=== PATIENT | female | born 1980 | race Caucasian/White ===

== ENCOUNTER 2016-11-15 18:44 | Emergency (ER) | payer OTHER ==
[~2016-11-15] VITALS: Ht 170.2 cm; Wt 110.0 kg
[~2016-11-15 18:44] MED LIST: CYCL-36 PO; DICL75 PO; IBUP-238 PO; Z.0.NO CURRENT MEDS
[2016-11-15 18:45] VITALS: BP 135/82; PULSE 78; RESP 20; TEMP 98.5; O2SAT 99
[2016-11-15] MEDS ORDERED: LEVS0.124 SL (20:14)
[2016-11-15] MEDS ORDERED: CYCL5TAB PO (20:14)
--- NOTE | 2016-11-15 20:15 | PD ---
HPI Chief Complaint: Abdominal Pain Time Seen by Provider: 20:12 Travel History International Travel<30 days: No Contact w/Intl Traveler<30days: No Traveled to known affect area: No History of Present Illness HPI The patient is a 36-year-old female that complains of right middle quadrant pain and loose stool since the of this month. She denies any nausea, vomiting or diarrhea. She denies any fever. She does have a history of irritable bowel syndrome. She has a history of cystectomy but still has her appendix. She is not sexually active for many months and cannot be . PFSH Past Medical History Diminished Hearing: No Gastrointestinal Disorders: Yes (IBS) Immunizations Current: Yes ?: Not LMP: 11/02/16 : 0 Past Surgical History Cholecystectomy: Yes (08/06/06) Other Surgery: Yes (BREAST REDUCTION) Social History Alcohol Use: No Tobacco Use: No Substance Use: No Allergies-Medications (Allergen,Severity, Reaction): Coded Allergies: Demerol (Verified Adverse Reaction, Severe, "JITTERY", 11/15/16) Morphine (Verified Adverse Reaction, Severe, "JITTERY", 11/15/16) Uncoded Allergies: NO NARCOTICS PLEASE (Adverse Reaction, Intermediate, 09/13/09) PT STATES UNWANTED SIDE EFFECTS Reported Meds & Prescriptions Reported Meds & Active Scripts Active Bentyl (Dicyclomine HCl) 10 Mg Cap 10 Mg PO QID Reported Levsin-SL (Hyoscyamine Sulfate) 0.125 Mg Subl 0.125 Mg SL BID Flexeril (Cyclobenzaprine HCl) 5 Mg Tab 5 Mg PO TID Review of Systems Except as stated in HPI: all other systems reviewed are Neg Physical Exam Narrative GENERAL: The patient is alert, slightly obese, oriented 3 and slight apparent distress with her abdominal discomfort. Her vital signs are normal. SKIN: Focused skin assessment warm/dry. HEAD: Atraumatic. Normocephalic. EYES: Pupils equal and round. No scleral icterus. No injection or drainage. ENT: No nasal bleeding or discharge. Mucous membranes pink and moist. NECK: Trachea midline. No JVD. CARDIOVASCULAR: Regular rate and rhythm. No murmur appreciated. RESPIRATORY: No accessory muscle use. Clear to auscultation. Breath sounds equal bilaterally. GASTROINTESTINAL: Abdomen soft, with tenderness in the right middle quadrant to direct palpation, nondistended. Hepatic and splenic margins not palpable. No guarding or rebound is present. Old, healed laparoscopic cholecystectomy scars are seen. There is some very minimal tenderness in the right lower quadrant. MUSCULOSKELETAL: No obvious deformities. No clubbing. No cyanosis. No edema. NEUROLOGICAL: Awake and alert. No obvious cranial nerve deficits. Motor grossly within normal limits. Normal speech. PSYCHIATRIC: Appropriate mood and affect; insight and judgment normal. Data Data Last Documented VS Vital Signs Date Time Temp Pulse Resp B/P Pulse Ox O2 Delivery O2 Flow Rate FiO2 11/15/16 18:49 11/15/16 18:45 98.5 78 20 99 Room Air Orders Complete Blood Count With Diff (11/15/16 20:16) Comprehensive Metabolic Panel (11/15/16 20:16) Lipase (11/15/16 20:16) Urinalysis - C+S If Indicated (11/15/16 20:16) Iv Access Insert/Monitor (11/15/16 20:16) Ecg Monitoring (11/15/16 20:16) Oximetry (11/15/16 20:16) Sodium Chlor 0.9% 1000 Ml Inj (Ns 1000 M (11/15/16 20:16) Sodium Chloride 0.9% Flush (Ns Flush) (11/15/16 20:30) Ed Urine Pregnancytest Poc (11/15/16 20:16) Dicyclomine (Bentyl) (11/15/16 22:30) Labs Laboratory Tests Test 11/15/16 20:30 White Blood Count 7.1 TH/MM3 Red Blood Count 4.32 MIL/MM3 Hemoglobin 13.7 GM/DL Hematocrit 40.0 % Mean Corpuscular Volume 92.7 FL Mean Corpuscular Hemoglobin 31.7 PG Mean Corpuscular Hemoglobin 34.2 % Concent Red Cell Distribution Width 13.0 % Platelet Count 230 TH/MM3 Mean Platelet Volume 9.3 FL Neutrophils (%) (Auto) 59.8 % Lymphocytes (%) (Auto) 31.6 % Monocytes (%) (Auto) 7.7 % Eosinophils (%) (Auto) 0.5 % Basophils (%) (Auto) 0.4 % Neutrophils # (Auto) 4.2 TH/MM3 Lymphocytes # (Auto) 2.2 TH/MM3 Monocytes # (Auto) 0.5 TH/MM3 Eosinophils # (Auto) 0.0 TH/MM3 Basophils # (Auto) 0.0 TH/MM3 CBC Comment DIFF FINAL Differential Comment Urine Color YELLOW Urine Turbidity HAZY Urine pH 5.0 Urine Specific Holt 1.032 Urine Protein TRACE mg/dL Urine Glucose (UA) NEG mg/dL Urine Ketones NEG mg/dL Urine Occult Blood NEG Urine Nitrite NEG Urine Bilirubin NEG Urine Urobilinogen 2.0 MG/DL Urine Leukocyte Esterase NEG Urine Squamous Epithelial 2 /hpf Cells Urine Hyaline Casts 2 /lpf Urine Mucus FEW /lpf Microscopic Urinalysis Comment CULT NOT INDICATED Sodium Level 140 MEQ/L Potassium Level 3.8 MEQ/L Chloride Level 105 MEQ/L Carbon Dioxide Level 28.7 MEQ/L Anion Gap 6 MEQ/L Blood Urea Nitrogen 7 MG/DL Creatinine 0.78 MG/DL Estimat Glomerular Filtration 85 ML/MIN Rate Random Glucose 82 MG/DL Calcium Level 8.9 MG/DL Total Bilirubin 0.3 MG/DL Aspartate Amino Transf 26 U/L (AST/SGOT) Alanine Aminotransferase 37 U/L (ALT/SGPT) Alkaline Phosphatase 85 U/L Total Protein 7.6 GM/DL Albumin 4.1 GM/DL Lipase 168 U/L MDM Medical Decision Making Medical Screen Exam Complete: Yes Emergency Medical Condition: Yes Medical Record Reviewed: Yes Interpretation(s) The CBC is normal, the white count is 7100. The complete metabolic profile shows a GFR of 85 but is otherwise normal. The lipase is normal. The urine shows a specific gravity 1.032 and trace protein but is otherwise normal and culture is not indicated. Differential Diagnosis Irritable bowel syndrome, intestinal colic, urinary tract infection, acute appendicitis Narrative Course The patient likely has irritable bowel syndrome. She is done well with Bentyl in the past and will be prescribed that. The low white count and soft abdomen and lack of tenderness in the right lower quadrant is against acute appendicitis. The patient's normal white count, soft abdomen is against appendicitis. She is not having urinary tract infection but she does need increased liquids as evidenced by her high specific gravity of the urine. Diagnosis Primary Impression: Irritable bowel syndrome Additional Impression: Mild dehydration Additional Instructions: As we discussed, if the pain shifts to the right and below the umbilicus please return for reevaluation. That is where the appendix is and you may require a CAT scan at that point. Also as we discussed, increase liquid intake because you are slightly dehydrated. Med/Other Pt SpecificInfo: Prescription(s) given Scripts Dicyclomine (Bentyl)10 Mg Cap10 Mg PO QID #60 CAP Ref 0 Prov:Andry Luevano MD 11/15/16 Disposition: 01 DISCHARGE HOME Condition: Stable Andry Luevano MD November 15, 2016 20:15
[2016-11-15] MEDS ORDERED: SODIUM CHLOR 0.9% 1000 ML INJ 1,000 ML IV SCH (20:16)
[2016-11-15] MEDS ORDERED: SODIUM CHLORIDE 0.9% FLUSH 10 ML FLUSH IV FLUSH PRN (20:30)
[2016-11-15 20:59] LABS: AUTOMATED NEUTROPHIL # 4.2 TH/MM3 (1.8-7.7); BASOPHIL % 0.4 % (0.0-2.0); EOSINOPHIL % 0.5 % (0.0-4.0); HEMO FLAGS DIFF FINAL; LYMPH % 31.6 % (9.0-44.0); LYMPHOCYTE # 2.2 TH/MM3 (1.0-4.8); MEAN CELL VOLUME 92.7 FL (80.0-100.0); MEAN CORPUSCULAR HEMOGLOBIN 31.7 PG (27.0-34.0); MEAN CORPUSCULAR HGB CONC 34.2 % (32.0-36.0); MONO % 7.7 % (0.0-8.0); NEUT % 59.8 % (16.0-70.0); PLATELET COUNT 230 TH/MM3 (150-450); RED BLOOD COUNT 4.32 MIL/MM3 (4.00-5.30); WHITE BLOOD COUNT 7.1 TH/MM3 (4.0-11.0)
[2016-11-15 21:28] LABS: ANION GAP 6 MEQ/L (5-15); AST (GOT) 26 U/L (15-37); BICARBONATE 28.7 MEQ/L (21.0-32.0); BLOOD UREA NITROGEN 7 MG/DL (7-18); CHLORIDE 105 MEQ/L (98-107); GLOMERULAR FILTRATION RATE 85 ML/MIN (>89); POTASSIUM 3.8 MEQ/L (3.5-5.1); SODIUM (NA) 140 MEQ/L (136-145)
[2016-11-15 21:31] LABS: ALKALINE PHOSPHATASE 85 U/L (45-117); ALT (GPT) 37 U/L (10-53); TOTAL BILIRUBIN ADULT 0.3 MG/DL (0.2-1.0)
[2016-11-15 21:35] LABS: BLOOD, URINE NEG (NEG); COMMENT (UR) CULT NOT INDICATED; CULTURE IF INDICATED CULT NOT INDICATED; GLUCOSE,URINE NEG (NEG); HYALINE CAST, URINE 2 /lpf (RARE); KETONE, URINE NEG (NEG); MUCUS URINE FEW /lpf (OCC); NITRITE,URINE NEG (NEG); SQUAMOUS EPITHELIAL CELL URINE 2 /hpf (0-5); URINE COLOR YELLOW (YELLW/STRAW)
[2016-11-15] MEDS ORDERED: DICY10 PO (22:18)
[2016-11-15] MEDS ORDERED: DICYCLOMINE HCL 10 MG CAP PO ONE (22:30)
== END 2016-11-15 23:03 | disposition home or self-care (01) ==
LOC: NEPC 18:44
DX: K58.9 Irritable bowel syndrome, unspecified (principal); E86.0 Dehydration
CPT/HCPCS: 80053; 81001; 83690; 84703; 85025; 99283; J7030

== ENCOUNTER 2016-11-27 15:28 | Emergency (ER) | payer OTHER ==
[~2016-11-27] VITALS: Ht 170.2 cm; Wt 121.7 kg
[~2016-11-27 15:28] MED LIST changes: -CYCL-36 PO; +CYCL5TAB PO; -DICL75 PO; +DICY10 PO; -IBUP-238 PO; +LEVS0.124 SL; -Z.0.NO CURRENT MEDS
[2016-11-27 15:32] VITALS: PULSE 75; RESP 16; TEMP 98.3; O2SAT 99
[2016-11-27 15:38] VITALS: BP 129/65
--- NOTE | 2016-11-27 16:03 | PD ---
HPI Chief Complaint: Injury Time Seen by Provider: 15:50 Travel History International Travel<30 days: No Contact w/Intl Traveler<30days: No Traveled to known affect area: No History of Present Illness HPI 36-year-old female presents to the emergency department for evaluation of right fifth digit pain. She reports prior to arrival she jammed the finger into her car door and now having pain pain/swelling/ecchymosis in the digit. She reports limited range of motion due to pain. No numbness or tingling in the digit. There is no deformity. PFSH Past Medical History Medical History: Denies Significant Hx Hx Anticoagulant Therapy: No Diabetes: No Diminished Hearing: No Gastrointestinal Disorders: Yes (IBS) Immunizations Current: Yes ?: Not : 0 Past Surgical History Cholecystectomy: Yes (08/06/06) Other Surgery: Yes (BREAST REDUCTION) Social History Alcohol Use: No Tobacco Use: No Substance Use: No Allergies-Medications (Allergen,Severity, Reaction): Coded Allergies: Demerol (Verified Adverse Reaction, Severe, "JITTERY", 11/27/16) Morphine (Verified Adverse Reaction, Severe, "JITTERY", 11/27/16) Uncoded Allergies: NO NARCOTICS PLEASE (Adverse Reaction, Intermediate, 09/13/09) PT STATES UNWANTED SIDE EFFECTS Reported Meds & Prescriptions Reported Meds & Active Scripts Active No Active Prescriptions or Reported Medications Review of Systems Except as stated in HPI: all other systems reviewed are Neg Physical Exam Narrative GENERAL: Well-nourished, well-developed patient. SKIN: Focused skin assessment warm/dry. Ecchymosis dorsal aspect of right fifth digit. HEAD: Normocephalic. EYES: No scleral icterus. No injection or drainage. NECK: Supple, trachea midline. No JVD or lymphadenopathy. CARDIOVASCULAR: Regular rate and rhythm without murmurs, gallops, or rubs. RESPIRATORY: Breath sounds equal bilaterally. No accessory muscle use. GASTROINTESTINAL: Abdomen soft, non-tender, nondistended. MUSCULOSKELETAL: No cyanosis. Right fifth digit: No deformity. Mild swelling/ ecchymosis over the PIP joint. Pain with flexion of the finger. Normal strength and sensation in the digit. Brisk cap refill. BACK: Nontender without obvious deformity. No CVA tenderness. Data Data Last Documented VS Vital Signs Date Time Temp Pulse Resp B/P Pulse Ox O2 Delivery O2 Flow Rate FiO2 11/27/16 15:38 129/65 11/27/16 15:32 98.3 75 16 99 Orders Finger ([id number]) (11/27/16 ) MDM Medical Decision Making Medical Screen Exam Complete: Yes Emergency Medical Condition: Yes Differential Diagnosis Finger fracture, contusion, finger sprain Narrative Course 36-year-old female presents to the emergency department for evaluation of right fifth digit pain. Patient reports she jammed the finger in a car door. There is no deformity. She has mild swelling and ecchymosis over the PIP joint. X- ray pending X-ray right hand: Negative for fracture Finger splint applied. Patient instructed to follow up with her primary doctor. NSAIDs as needed for pain. Diagnosis Primary Impression: Contusion of finger of right hand Qualified Code: S60.051A - Contusion of right little finger without damage to nail, initial encounter Referrals: Primary Care Physician Additional Instructions: The splint as needed for comfort. Take Motrin as needed for pain. Elevate and ice the extremity. Scripts Ibuprofen 800 Mg [id number] Mg PO Q8H PRN (Pain/Inflammation) #30 TAB Prov:Sharyn Taylor 11/27/16 Disposition: 01 DISCHARGE HOME Condition: Stable Sharyn Taylor Nov 27, 2016 16:03
--- NOTE | 2016-11-27 16:14 | RADHPO ---
EXAM DATE/TIME: 11/27/2016 16:03 [facility] COMPARISON: No previous studies available for comparison. INDICATIONS : Right 5th digit pain after patient slammed hand in door today MEDICAL HISTORY : None. SURGICAL HISTORY : None. ENCOUNTER: Initial ACUITY: 1 day PAIN SCORE: 10/10 LOCATION: Right 5th PIP joint FINDINGS: Examination of the fifth digit of the right hand demonstrates no evidence of fracture or dislocation. No radiopaque foreign bodies are seen. The soft tissues are intact. CONCLUSION: Negative for fracture or dislocation. Follow up in 7-10 days is suggested if symptoms persist. Solitario Garcia MD FACR on November 27, 2016 at 16:12 Board Certified Radiologist. This report was verified electronically.
[2016-11-27] MEDS ORDERED: IBUP800T23 PO (16:44)
== END 2016-11-27 16:53 | disposition home or self-care (01) ==
LOC: PHEFT 15:28
DX: S60.051A Contusion of right little finger without damage to nail, initial encounter (principal); W23.0XXA Caught, crushed, jammed, or pinched between moving objects, initial encounter
CPT/HCPCS: 73140; 99283

== ENCOUNTER 2017-02-10 17:14 | Emergency (ER) | payer OTHER ==
[~2017-02-10] VITALS: Ht 170.2 cm; Wt 116.0 kg
[~2017-02-10 17:14] MED LIST changes: -CYCL5TAB PO; -DICY10 PO; +IBUP800T23 PO; -LEVS0.124 SL
[2017-02-10 17:24] VITALS: BP 170/103; PULSE 108; RESP 16; TEMP 98.1; O2SAT 99
--- NOTE | 2017-02-10 18:37 | PD ---
HPI Chief Complaint: Cold / Flu Symptoms Time Seen by Provider: 18:08 Travel History International Travel<30 days: No Contact w/Intl Traveler<30days: No Traveled to known affect area: No History of Present Illness HPI 36-year-old female presents to the emergency room for evaluation of sinus headache, sinus pressure, congestion, sore throat, nonproductive cough for the past 4 weeks. Patient went to an urgent care center 2 weeks ago and was given prescription for Augmentin. States she was better for a short time until she finish the course and symptoms recurred. Leaning forward worsens her headache and sinus pressure. She has been taking [id number] Sudafed without any relief in symptoms. She has also had chest tightness with breathing for which she has been using her nebulizer and inhaler without significant relief. She denies fever, chills, nausea, and vomiting. No nuchal conditions or daily medications. PFSH Past Medical History Hx Anticoagulant Therapy: No Diabetes: No Diminished Hearing: No Gastrointestinal Disorders: Yes (IBS) Immunizations Current: Yes ?: Not : 0 Past Surgical History Cholecystectomy: Yes (08/06/06) Other Surgery: Yes (BREAST REDUCTION) Social History Alcohol Use: No Tobacco Use: No Substance Use: No Allergies-Medications (Allergen,Severity, Reaction): Coded Allergies: meperidine (Unverified Adverse Reaction, Severe, "JITTERY", 02/10/17) morphine (Unverified Adverse Reaction, Severe, "JITTERY", 02/10/17) Uncoded Allergies: NO NARCOTICS PLEASE (Adverse Reaction, Intermediate, 09/13/09) PT STATES UNWANTED SIDE EFFECTS Reported Meds & Prescriptions Reported Meds & Active Scripts Active No Active Prescriptions or Reported Medications Review of Systems Except as stated in HPI: all other systems reviewed are Neg Physical Exam Narrative GENERAL: Well-nourished, well-developed female in no acute distress. Afebrile. Ambulatory. SKIN: Focused skin assessment warm/dry. HEAD: Normocephalic. EYES: No scleral icterus. No injection or drainage. NECK: Supple, trachea midline. No JVD or lymphadenopathy. ENT: Mucosa pink and moist. No erythema or exudates. No uvular edema. No uvular , palatal, or tonsillar deviation. Airway patent. Nasal turbinates appear normal without nasal blood, purulent drainage or septal hematoma. EARS: Bilateral pinnae and external canals appear within normal limits. Bilateral tympanic membranes without erythema, dullness or perforation. CARDIOVASCULAR: Regular rate and rhythm without murmurs, gallops, or rubs. RESPIRATORY: Breath sounds equal bilaterally. No accessory muscle use. No crackles, rales, wheezes, or rhonchi. Data Data Last Documented VS Vital Signs Date Time Temp Pulse Resp B/P (MAP) Pulse Ox O2 Delivery O2 Flow Rate FiO2 02/10/17 17:24 98.1 108 16 170/103 (125) 99 MDM Medical Decision Making Medical Screen Exam Complete: Yes Emergency Medical Condition: Yes Medical Record Reviewed: Yes Differential Diagnosis Recurrent sinusitis, upper respiratory infection, otitis media, pneumonia Narrative Course 36-year-old female presents to the emergency room for evaluation of sinus headache, sinus pressure, cough, congestion, sore throat for the past 4 weeks. Patient was already put on Augmentin 2 weeks ago for 10 days and felt somewhat improved until she stopped taking medication. No fevers, chills, nausea, or vomiting. Physical exam reveals tenderness to palpation of the maxillary sinuses. No evidence of bacterial infection throat. Lungs sounds clear and equal bilaterally. Patient could have resistant organism that she will be treated with high-dose Augmentin. Told to follow up with her primary care physician or return for worsening symptoms. She understands and agrees to plan. Diagnosis Primary Impression: Sinus infection Qualified Codes: J01.00 - Acute maxillary sinusitis, unspecified Referrals: Primary Care Physician Additional Instructions: Rest and drink plenty of fluids. Continue the [id number] cough and cold medications as directed on box. Take ibuprofen with food as directed, as needed for pain. Augmentin as directed, until gone. Follow-up with a primary care physician. Return to the emergency room for worsening symptoms. Scripts No Active Prescriptions or Reported Meds Disposition: 01 DISCHARGE HOME Condition: Stable Adwoa Breen Feb 10, 2017 18:37
[2017-02-10] MEDS ORDERED: AUGM500T7 PO (18:38)
[2017-02-10 19:05] VITALS: BP 128/61
== END 2017-02-10 19:07 | disposition home or self-care (01) ==
LOC: PHEFT 17:14
DX: J01.00 Acute maxillary sinusitis, unspecified (principal)
CPT/HCPCS: 99283

== ENCOUNTER 2017-08-11 18:32 | Emergency (ER) | payer SELFPAY ==
[~2017-08-11] VITALS: Ht 170.2 cm; Wt 123.0 kg
[~2017-08-11 18:32] MED LIST changes: +AUGM500T7 PO; -IBUP800T23 PO
[2017-08-11 18:38] VITALS: BP 156/68; PULSE 87; RESP 18; TEMP 98.1; O2SAT 95
--- NOTE | 2017-08-11 18:51 | PD ---
HPI Chief Complaint: Injury Time Seen by Provider: 18:42 Travel History International Travel<30 days: No Contact w/Intl Traveler<30days: No Traveled to known affect area: No History of Present Illness HPI Patient comes emergency department complaining of pain over the medial aspect of her left knee that began 3 days ago. Patient states please twisted her knee causing the pain. Describes pain as a throbbing aching sensation. Denies any radiation of pain. Pain is worse with walking and with certain movement. Patient reports icing it, elevating, and taking ibuprofen with minimal improvement of symptoms. Patient reports a history of meniscus tear in the area that was repaired in high school. Denies any fevers, direct trauma, IV drug use, or . PFSH Past Medical History Hx Anticoagulant Therapy: No Diabetes: No Diminished Hearing: No Gastrointestinal Disorders: Yes (IBS) Immunizations Current: Yes Tetanus Vaccination: < 5 Years Influenza Vaccination: Yes ?: Not LMP: TODAY : 0 Past Surgical History Cholecystectomy: Yes (08/06/06) Other Surgery: Yes (BREAST REDUCTION) Social History Alcohol Use: No Tobacco Use: No Substance Use: No Allergies-Medications (Allergen,Severity, Reaction): Coded Allergies: meperidine (Unverified Adverse Reaction, Severe, "JITTERY", 08/11/17) morphine (Unverified Adverse Reaction, Severe, "JITTERY", 08/11/17) Uncoded Allergies: NO NARCOTICS PLEASE (Adverse Reaction, Mild, 08/11/17) PT STATES UNWANTED SIDE EFFECTS Reported Meds & Prescriptions Reported Meds & Active Scripts Active Ibuprofen 600 Mg Tab 600 Mg PO Q6H PRN Review of Systems Except as stated in HPI: all other systems reviewed are Neg Physical Exam Narrative GENERAL: Well-developed, overly nourished, in no acute distress, and non-ill appearing. SKIN: Focused skin assessment warm and dry. HEAD: Atraumatic. Normocephalic. EYES: Pupils equal and round. EOMI. No scleral icterus. No injection or drainage. ENT: No nasal bleeding or discharge. Mucous membranes pink and moist. NECK: Trachea midline. Supple. No nuclear rigidity. CARDIOVASCULAR: Dorsal pulses 2+, intact, and equal bilaterally. Capillary refill less than 2 seconds. RESPIRATORY: No accessory muscle use. No respiratory distress. MUSCULOSKELETAL: No obvious deformities. No clubbing. No cyanosis. No edema. Full range of motion. Knee: Negative patellar apprehension, varus and valgus maneuvers, anterior draw test, and Bruce test. Pulses equal BL distal to injury. Capillary refill less than 2 seconds distal to injury and equal BL. FROM distal to injury and equal BL. Strength distal to injury equal BL. NV intact distal to injury. Dorsal pulses equal BL. Sensation equal BL 1st web space. Patient reports point tenderness over medial aspect of left knee. No crepitus. NEUROLOGICAL: Awake and alert. No obvious cranial nerve deficits. Motor grossly within normal limits. Normal speech. PSYCHIATRIC: Appropriate mood and affect; insight and judgment normal. Data Data Last Documented VS Vital Signs Date Time Temp Pulse Resp B/P (MAP) Pulse Ox O2 Delivery O2 Flow Rate FiO2 08/11/17 18:38 98.1 87 18 156/68 (97) 95 Orders Orders Knee, Complete (4vws) (08/11/17 ) Splint Or Brace Apply/Monitor (08/11/17 18:45) Ct Knee W/O Contrast (08/11/17 ) Ed Discharge Order (08/11/17 21:37) Immobilizer Knee 20 Inch (08/11/17 ) [facility] Medical Decision Making Medical Screen Exam Complete: Yes Emergency Medical Condition: Yes Differential Diagnosis Fracture, sprain, contusion, dislocation Narrative Course Patient seen and examined. Initial radiological studies were ordered. X-ray had questionable tibial plateau fracture. CT study was ordered. Patient signed out to Dr. Jeong at the end of my shift pending CT results. Please see her documentation for final diagnosis and disposition. Scripts Ibuprofen (Ibuprofen) 600 Mg Tab 600 MG PO Q6H Y for Pain/Inflammation, #40 TAB 0 Refills Prov: Janel Jeong MD 08/11/17 Johnnie Jorge Aug 11, 2017 18:51
--- NOTE | 2017-08-11 19:52 | RADRPT ---
EXAM DATE/TIME: 08/11/2017 18:58 [facility] COMPARISON: No previous studies available for comparison. INDICATIONS : Left knee pain after lifting heavy tables and twisting knee. MEDICAL HISTORY : None. SURGICAL HISTORY : None. ENCOUNTER: Initial ACUITY: 2 days PAIN SCORE: 9/10 LOCATION: Left knee FINDINGS: There is a longitudinally oriented lucency seen involving the medial tibial plateau which is unexplai capri. A subtle fracture cannot be excluded. There is no definite joint effusion. There appears to be s ome chondrocalcinosis present. A bony mineralization and alignment are otherwise satisfactory. CONCLUSION: Cannot exclude subtle medial tibial plateau fracture. Mild arthritic changes. Radu Lyon MD on August 11, 2017 at 19:48 Board Certified Radiologist. This report was verified electronically.
--- NOTE | 2017-08-11 21:35 | RADRPT ---
EXAM DATE/TIME: 08/11/2017 20:25 [facility] COMPARISON: No previous studies available for comparison. INDICATIONS : Evaluate for subtle medial tibial plateau fracture. RADIATION DOSE: 15.06 CTDIvol (mGy) MEDICAL HISTORY : None SURGICAL HISTORY : None. ENCOUNTER: Initial ACUITY: 1 day PAIN SCALE: 8/10 LOCATION: Left knee TECHNIQUE: Volumetric scanning of the knee was performed. Using automated exposure control and adjustment of th e mA and/or kV according to patient size, radiation dose was kept as low as reasonably achievable to obtain optimal diagnostic quality images. DICOM format image data is available electronically for re view and comparison. FINDINGS: There is arthritic change with joint compartment narrowing most significantly immediately. There is c hondrocalcinosis present. Small marginal osteophytes are noted. There is no evidence of joint effusio n or fracture. No periarticular mass or hematoma is appreciated. CONCLUSION: Arthritic changes. No acute bony injury Radu Lyon MD on August 11, 2017 at 21:32 Board Certified Radiologist. This report was verified electronically.
[2017-08-11] MEDS ORDERED: IBUP-232 PO (21:39)
--- NOTE | 2017-08-11 21:39 | PD ---
Physical Exam Date Seen by Provider: Aug 11, 2017 Time Seen by Provider: 21:37 Narrative 37-year-old female came to the emergency room with history of knee injury after twisting her knee. She was seen by the PA and I'm supervising him. There was an x-ray done for the knee which showed a suspicious plateau fracture. A CAT scan was ordered. The CAT scan report is back and is negative for any fracture. Patient will be discharged home on the immobilizer and I'm fine with that plan. Data Data Last Documented VS Orders Orders Knee, Complete (4vws) (08/11/17 ) Splint Or Brace Apply/Monitor (08/11/17 18:45) Ct Knee W/O Contrast (08/11/17 ) Ed Discharge Order (08/11/17 21:37) Immobilizer Knee 20 Inch (08/11/17 ) MDM Supervised Visit with PAUL: No Diagnosis Primary Impression: Knee strain Qualified Codes: S86.912A - Strain of unspecified muscle(s) and tendon(s) at lower leg level, left leg, initial encounter Referrals: Primary Care Physician 3 days Additional Instruction: With the knee immobilizer at all times except when taking a shower. Keep the leg elevated above the heart level to minimize the swelling. Apply icepack whenever possible. He can take ibuprofen/Advil/Motrin for pain since it works as an anti-inflammatory as well. Follow-up with your primary care. Med/Other Pt SpecificInfo: Prescription(s) given Scripts Ibuprofen (Ibuprofen) 600 Mg Tab 600 MG PO Q6H Y for Pain/Inflammation, #40 TAB 0 Refills Prov: Janel Jeong MD 08/11/17 Disposition: 01 DISCHARGE HOME Condition: Stable Janel Jeong MD Aug 11, 2017 21:39
== END 2017-08-11 21:55 | disposition home or self-care (01) ==
LOC: PHEFT 18:32
DX: S86.912A Strain of unspecified muscle(s) and tendon(s) at lower leg level, left leg, initial encounter (principal); X50.9XXA Other and unspecified overexertion or strenuous movements or postures, initial encounter; K58.9 Irritable bowel syndrome, unspecified
CPT/HCPCS: 73564; 73700; 99284; L1830